=== PATIENT | female | born 1995 | race Caucasian/White ===

== ENCOUNTER 2017-05-03 12:45 | Emergency (ER) | payer MEDICAID ==
[~2017-05-03] VITALS: Ht 157.5 cm; Wt 166.0 kg
[2017-05-03 12:58] VITALS: Ht 157.5 cm; Wt 166.0 kg
[2017-05-03 14:50] VITALS: BP 143/58
== END 2017-05-03 14:50 | disposition home or self-care (01) ==
LOC: ED 12:45
DX: T16.1XXA Foreign body in right ear, initial encounter (principal); J45.909 Unspecified asthma, uncomplicated; Z90.89 Acquired absence of other organs; X58.XXXA Exposure to other specified factors, initial encounter; Y93.89 Activity, other specified; Y92.89 Other specified places as the place of occurrence of the external cause; Y99.8 Other external cause status

== ENCOUNTER 2019-09-10 17:14 | Emergency (ER) | payer OTHER, SELFPAY ==
[~2019-09-10] VITALS: Ht 162.6 cm; Wt 201.8 kg
[2019-09-10 17:15] VITALS: Ht 162.6 cm; Wt 201.8 kg
[2019-09-10 19:40] VITALS: BP 145/98
== END 2019-09-10 19:40 | disposition home or self-care (01) ==
LOC: ED 17:14
DX: R05 Cough (principal); J45.909 Unspecified asthma, uncomplicated
CPT/HCPCS: Q0092